=== PATIENT | female | born 1960 | race Caucasian/White ===

== ENCOUNTER 2016-05-23 17:03 | Emergency (ER) | payer OTHER | END 2016-05-23 18:00 | disposition left against medical advice (07) | DX: Z53.21 Procedure and treatment not carried out due to patient leaving prior to being seen by health care provider (principal) ==

== ENCOUNTER 2016-05-26 14:01 | Emergency (ER) | payer OTHER ==
--- NOTE | 2016-05-26 14:05 | EDPHY ---
H & P HPI/ROS: CHIEF COMPLAINT: Tooth pain HISTORY OF PRESENT ILLNESS: The patient is a 55-year-old hearing impaired female who comes to the emergency department by EMS complaining of tooth pain. She has been communicating through writing. We have an plywood stock grader coming but she points to her tooth 18. And is able to wiggle it. There several caries present several which have been field. No visible erythema or swelling. REVIEW OF SYSTEMS: Constitutional: denies: chills, fever, recent illness, recent injury EENTM: See HPI Respiratory: denies: cough, shortness of breath Cardiac: denies: chest pain, irregular heart rate, lightheadedness, palpitations Gastrointestinal/Abdominal: denies: abdominal pain, diarrhea, nausea, vomiting, blood streaked stools Genitourinary: denies: dysuria, frequency, hematuria, pain Musculoskeletal: denies: joint pain, muscle pain Skin: denies: lesions, rash, jaundice, bruising Neurological: denies: headache, dizziness, weakness Hematologic/Lymphatic: denies Immunologic/allergic: denies: HIV/AIDS, transplant EXAM: GENERAL: Well-appearing, well-nourished and in no acute distress. HEAD: Atraumatic, normocephalic. EYES: Pupils equal round and reactive to light, extraocular movements intact, sclera anicteric, conjunctiva are normal. ENT: TMs normal, nares patent, multiple caries . Moist mucous membranes. NECK: Normal range of motion, supple without lymphadenopathy or JVD. LUNGS: Breath sounds clear to auscultation bilaterally and equal. No wheezes rales or rhonchi. HEART: Regular rate and rhythm without murmurs, rubs or gallops. ABDOMEN: Soft, nontender, normoactive bowel sounds. No guarding, no rebound. No masses appreciated. BACK: No CVA tenderness, no spinal tenderness, step-offs or deformities EXTREMITIES: Normal range of motion, no pitting or edema. No clubbing or cyanosis. NEUROLOGICAL: Cranial nerves II through XII grossly intact. Normal speech, normal gait. 5/5 strength, normal movement in all extremities, normal sensation PSYCH: Normal mood, normal affect. SKIN: Warm, dry, normal turgor, no visible rashes or lesions. Source: Patient Exam Limitations: Language barrier - Personal History Tetanus Vaccine Date: 1989 - Medical/Surgical History Hx Asthma: No Hx Chronic Respiratory Disease: No Hx Diabetes: No Hx Cardiac Disease: No Hx Renal Disease: No Hx Cirrhosis: No Hx Alcoholism: No Hx HIV/AIDS: No Hx Splenectomy or Spleen Trauma: No Other PMH: Deaf, bipolar - Family History Significant Family History: No pertinent family hx - Social History Smoking Status: Never smoked Alcohol Use: None Drug Use: None Constitutional: Initial Vital Signs Temperature (C) 36.4 C 05/26/16 14:07 Heart Rate 78 05/26/16 14:07 Respiratory Rate 18 05/26/16 14:07 Blood Pressure 97/54 L 05/26/16 14:07 O2 Sat (%) 95 05/26/16 14:07 O2 Delivery Mode Room Air Allergies/Adverse Reactions: No Known Allergies Allergy (Unverified 11/22/14 17:02) Home Medications: Medication Instructions Recorded Benztropine Mesylate [Cogentin] 0.5 mg PO BID@09,16 11/22/14 [place] Carbonate ER [Lithobid 300 900 mg PO DAILY@16 11/22/14 mg (*)] Paliperidone Palmitate [Invega 234 mg IM Q28D 11/22/14 [place] (*)] Propranolol HCl [Inderal LA 120mg] 120 mg PO DAILY 11/22/14 Acetaminophen [Tylenol 325mg (*)] 650 mg PO Q4 PRN #0 tab 11/25/14 Amoxicillin/Clavulanate Pot 875 mg PO BID #42 tab 11/25/14 [Augmentin 875 MG TAB (*)] Hydrocodone/APAP 5/325 [Ramah 1 - 2 tab PO Q4H PRN #20 tab 05/26/16 5/325 (RX)] ED Images - Head Mouth: 1 - Tooth painful and with laxity. No visible swelling or erythema. Multiple caries several repaired. Medical Decision Making ED Course/Re-evaluation: It was taking up to an hour and half to get a [place]oan industrial designer present physically. I interviewed the patient through writing back and forth to each other. She agreed to this method. We discussed her tooth pain. It has been present for 2-3 weeks and is loose and throbbing. No erythema or swelling. No trouble swallowing . No fevers. I recommended that she see a dentist to have it pulled on Saturday. I will refer her to dental aid. She is requesting Vicodin for pain control. Will give her a take-home pack as well as a prescription. Differential Diagnosis: Partial list of the Differential diagnosis considered include but were not limited to; dental caries, dental abscess dental trauma and although unlikely based on the history and physical exam, I also considered mandible fracture, parotid gland infection, stone, deep tissue space infection. I discussed these differential diagnoses and the plan with the patient as well as the usual and expected course. The patient understands that the diagnosis is provisional and that in medicine we are not always correct and that further workup is often warranted. Usual and customary warnings were given. All of the patient's questions were answered. The patient was instructed to return to the emergency department should the symptoms at all worsen or return, otherwise to followup with the physician as we discussed. Departure - Departure Disposition: Home, Routine, Self-Care Clinical Impression: Pain, dental Condition: Fair Instructions: Toothache (ED) Referrals: NONE *PRIMARY CARE P,. [Primary Care Provider] - As per Instructions Dental Aid [Outside] - As per Instructions Prescriptions: Hydrocodone/APAP 5/325 [Ramah 5/325 (RX)] 1 - 2 tab PO Q4H PRN #20 tab PRN Reason: Pain, Moderate
[2016-05-26 14:12] VITALS: BP 97/54; PULSE 78; RESP 18; TEMP 97.5; O2SAT 95
== END 2016-05-26 15:09 | disposition home or self-care (01) ==
LOC: EDUNIT#
DX: K08.89 Other specified disorders of teeth and supporting structures (principal)

== ENCOUNTER 2016-09-05 14:17 | Emergency (ER) | payer OTHER, MEDICAID ==
--- NOTE | 2016-09-05 14:31 | EDPHY ---
H & P Source: Patient, EMS - Personal History Tetanus Vaccine Date: 1989 - Medical/Surgical History Hx Asthma: No Hx Chronic Respiratory Disease: No Hx Diabetes: No Hx Cardiac Disease: No Hx Renal Disease: No Hx Cirrhosis: No Hx Alcoholism: No Hx HIV/AIDS: No Hx Splenectomy or Spleen Trauma: No Other PMH: Deaf, bipolar - Social History Smoking Status: Never smoked HPI/ROS: HPI CHIEF COMPLAINT: M1 hold by [facility], auditory hallucination, spiritual fixation HISTORY OF PRESENT ILLNESS: This patient very pleasant 55-year-old female she is deaf and communicates only with sign language and written paper, she presents emergency room by EMS from [facility] at the [facility] where she had evaluation was placed on M1 hold for having auditory hallucinations not taking care of herself not eating and "spiritual fixation" she has significant past medical history for schizoaffective disorder. Bipolar. Past Medical History: Schizoaffective disorder, bipolar, deaf Past Surgical History: No recent surgical history Social History:, smokes tobacco, unknown illicit drug use or alcohol Family History: Noncontributory ROS REVIEW OF SYSTEMS: A comprehensive 10 point review of systems is otherwise negative aside from elements mentioned in the history of present illness. Exam Constitutional triage nursing summary reviewed, vital signs reviewed, awake/ alert. Eyes normal conjunctivae and sclera, EOMI, PERRLA. HENT normal inspection, atraumatic, moist mucus membranes, no epistaxis, neck supple/ no meningismus, no raccoon eyes. Respiratory clear to auscultation bilaterally, normal breath sounds, no respiratory distress, no wheezing. Cardiovascular rate normal, regular rhythm, no murmur, no edema, distal pulses normal. Gastrointestinal soft, non-tender, no rebound, no guarding, normal bowel sounds, no distension, no pulsatile mass. Genitourinary no CVA tenderness. Musculoskeletal no midline vertebral tenderness, full range of motion, no calf swelling, no tenderness of extremities, no meningismus, good pulses, neurovascularly intact. Skin pink, warm, & dry, no rash, skin atraumatic. Neurologic awake, alert and oriented x 3, AAOx3, moves all 4 extremities equally, motor intact, sensory intact, CN II-XII intact, normal cerebellar, normal vision, normal speech. Psychiatric normal mood/affect. Heme/Lymph/Immune no lymphadenopathy. Differential Diagnosis: Includes but is not limited to in a particular order, schizoaffective disorder, bipolar, mood disorder, acute psychosis, gravely disabled Medical Decision Making: Plan for patient patient on M1 hold prior to arriving , will notify mental health at this patient is here will touch base with them to see the best plan. Re-evaluation: 2016: No acute events today. Patient waiting on placement. Patient on M1 hold. Schizoaffective. Patient signed over to Dr. Early at 9pm shift- change. (Ernie Oliver) Constitutional: Initial Vital Signs Temperature (C) 36.6 C 09/05/16 14:45 Heart Rate 93 09/05/16 14:45 Respiratory Rate 18 09/05/16 14:45 Blood Pressure 106/68 09/05/16 14:45 O2 Sat (%) 94 09/05/16 14:45 O2 Delivery Mode Room Air Allergies/Adverse Reactions: No Known Allergies Allergy (Unverified 11/22/14 17:02) Home Medications: Medication Instructions Recorded Benztropine Mesylate [Cogentin] 0.5 mg PO BID@,16 11/22/14 [place] Carbonate ER [Lithobid 300 900 mg PO DAILY@16 11/22/14 mg (*)] Paliperidone Palmitate [Invega 819 mg IM Q92D 09/06/16 [place]] Propranolol Sr [Inderal LA 80mg 80 mg PO DAILY 09/06/16 (*)] Medical Decision Making ED Course/Re-evaluation: 2129: The patient is signed out to me at change of shift. The patient is stable. 2299: Patient is signed out to Dr. Fountain at change of shift. The patient is stable. (Connie Carrasco) 6:30 a.m.- The patient has been stable during my shift. We are currently awaiting placement. The case will be signed out to the oncoming provider at change of shift, Dr. Llanos. (Teresa Fountain) 7:00 a.m.-I assumed care of this patient at shift change. She has a history of schizoaffective disorder and presents with acute psychosis. She has had a mental health evaluation and is awaiting inpatient disposition. 3pm: signed over to Dr. Ovalles at shift change. Dispo pending. (Lakshmi Llanos) I assumed care of this patient at 3:[address] Llanos. Patient was transferred to [place] at 2130. She was stable throughout my shift. (Carmen Ovalles) - Data Points Laboratory Results: Laboratory Results 09/05/16 16:43 09/05/16 16:43 Medications Given: Discontinued Medications Benztropine Mesylate (Cogentin) 0.5 mg PO BID ONE Stop: 09/06/16 08:01 Last Admin: 09/06/16 10:44 Dose: 0.5 mg Benztropine Mesylate (Cogentin) 0.5 mg PO ONCE ONE Stop: 09/06/16 10:16 Last Admin: 09/06/16 10:43 Dose: Not Given Benztropine Mesylate (Cogentin) 0.5 mg PO EDNOW ONE Stop: 09/06/16 18:01 Last Admin: 09/06/16 21:22 Dose: 0.5 mg [place] Carbonate (Lithobid) 900 mg PO DAILY [facility] Stop: 03/05/17 15:59 Last Admin: 09/06/16 16:25 Dose: 900 mg Propranolol HCl (Inderal) 120 mg PO DAILY [facility] Stop: 03/05/17 07:59 Last Admin: 09/06/16 09:41 Dose: Not Given Propranolol HCl (Inderal La) 80 mg PO DAILY [facility] Stop: 03/05/17 08:59 Last Admin: 09/06/16 10:30 Dose: 80 mg Departure - Departure Disposition: Other Psych, Not [facility] Clinical Impression: Hallucination Condition: Good Referrals: Patient,NotPresent [Unknown] - As per Instructions
[2016-09-05 16:51] LABS: % IMMATURE GRANULYOCYTES 0.3 % (0.0-1.1); ABSOLUTE IMMATURE GRANULOCYTES 0.02 10^3/uL (0.00-0.10); ADD DIFF? NO; ADD MORPH? NO; ADD SCAN? NO; ATYPICAL LYMPHOCYTE FLAG 0 (0-99); FRAGMENT RBC FLAG 0 (0-99); HEMATOCRIT 37.9 % (38.0-47.0); HEMOGLOBIN 12.8 g/dL (12.6-16.3); LEFT SHIFT FLG 0 (0-99); LIPEMIA HEMOLYSIS FLAG 90 (0-99); MEAN CELL HEMOGLOBIN CONCENTR. 33.8 g/dL (32.4-36.7); MEAN PLATELET VOLUME 8.9 fL (8.7-11.7); PLATELET CLUMPS FLAG 0 (0-99); PLATELET COUNT 330 10^3/uL (150-400); RED BLOOD CELL COUNT 4.26 10^6/uL (4.18-5.33)
[2016-09-05 17:24] LABS: ANION GAP 11 mEq/L (8-16); CALCIUM 9.2 mg/dL (8.5-10.4); CARBON DIOXIDE 22 mEq/l (22-31); CHLORIDE 106 mEq/L (97-110); CREATININE 0.6 mg/dL (0.6-1.0); ETHANOL SERUM < 10 mg/dL (0-10); GLOMERULAR FILTRATION RATE > 60; GLUCOSE 97 mg/dL (70-100); LITHIUM 0.3 mEq/L (0.6-1.2); POTASSIUM 3.2 mEq/L (3.5-5.2); SALICYLATE < 1.0 mg/dL (2.0-20.0); SODIUM 139 mEq/L (134-144)
[2016-09-06] MEDS: PROPRANOLOL HCL 10 MG TAB PO SCH ×2 (06:44→09:41)
[2016-09-06] MEDS ORDERED: BENZTROPINE MESYLATE 1 MG TAB PO ONE ×3 (08:00→18:00)
[2016-09-06] MEDS ORDERED: PROPRANOLOL SR 80 MG CAP PO SCH (09:00)
[2016-09-06] MEDS ORDERED: LITHIUM CARBONATE ER 300 MG TAB PO SCH (16:00)
[2016-09-06 21:59] VITALS: BP 111/85; PULSE 82; RESP 20; TEMP 98.2; O2SAT 94
== END 2016-09-06 21:35 ==
LOC: EDUNIT#
DX: R44.3 Hallucinations, unspecified (principal); F17.200 Nicotine dependence, unspecified, uncomplicated
CPT/HCPCS: 80305; G0480